=== PATIENT | female | born 1975 | race Caucasian/White ===

== ENCOUNTER 2025-07-06 14:23 | Emergency (ER) | payer OTHER, SELFPAY ==
--- NOTE | 2025-07-06 14:25 | ED_ITS ---
HPI - Abdominal Pain General Chief Complaint: Abdominal Pain Stated Complaint: stomach / sharp pain Time Seen by Provider: 07/06/25 14:25 Source: patient Mode of arrival: ambulatory Limitations: no limitations History of Present Illness HPI narrative: Kailey is a 50-year-old female patient presenting to the clinic today with complaints sharp epigastric abdominal pain and generalized back pain x1 day. She reports she drink beer and ate fried chicken yesterday. Symptoms are worse after eating. Denies any nausea, vomiting, or diarrhea. Last bowel movement was yesterday and normal for her. She does have a history of GERD, stomach ulcer, and constipation in the past as well. Has not been taking her GERD medications as she has recently moved here from [facility]. Denies any chest pain or shortness of breath. No blood in her stool. She denies any urinary symptoms. Last menstrual period was 1 week ago-no concern for . Related Data Allergies Allergy/AdvReac Type Severity Reaction Status Date / Time No Known Allergies Allergy Verified 07/06/25 14:53 Review of Systems Review of Systems: Pertinent positives per HPI. Patient denies any fever, chills, rash, headache, visual changes, dizziness, cough, runny nose, sore throat, shortness of breath, chest pain, palpitations, nausea, vomiting, diarrhea, constipation, or any urinary issues. PMFSH Comments At the time of my signature, I reviewed and agree with the nursing past medical, surgical, social, and family history. There is no relevant family history pertinent to the patient complaint. Exam Narrative: General: Well-developed, well nourished, in no apparent distress. Head: Normocephalic, atraumatic. Cardio: Regular rate and rhythm, s1 and s2 normal, no murmur appreciated. Resp: Clear to auscultation bilaterally, no rhonchi, rales, wheezing or rubs. Abdomen: Soft, pliable, bowel sounds present in all quadrants, epigastric abdominal tender to palpation, no organomegly, no CVAT tenderness. Course Course Emergency Course: Portions of this record may have been created with voice recognition software. Level of Care: Express Care Visit Vital Signs Vital signs: Vital Signs Temperature 36.5 C 07/06/25 14:32 Pulse Rate 74 07/06/25 14:32 Respiratory Rate 20 07/06/25 14:32 Blood Pressure 112/72 07/06/25 14:32 Pulse Oximetry 99 07/06/25 14:32 Oxygen Delivery Room Air 07/06/25 14:32 Temperature 36.5 C 07/06/25 14:32 Pulse Rate 74 07/06/25 14:32 Respiratory Rate 20 07/06/25 14:32 Blood Pressure 112/72 07/06/25 14:32 Pulse Oximetry 99 07/06/25 14:32 Oxygen Delivery Room Air 07/06/25 14:32 Vital signs reviewed MDM - Abdominal Pain MDM Narrative Medical decision making narrative: At the time of visit patient is resting comfortably on the exam table. Patient appears to be nontoxic. Complaints sharp epigastric abdominal pain and generalized back pain x1 day. She reports she drink beer and ate fried chicken yesterday. Symptoms are worse after eating. Denies any nausea, vomiting, or diarrhea. Last bowel movement was yesterday and normal for her. She does have a history of GERD, stomach ulcer, and constipation in the past as well. Has not been taking her GERD medications as she has recently moved here from [facility]. Denies any chest pain or shortness of breath. No blood in her stool. She denies any urinary symptoms. Last menstrual period was 1 week ago-no concern for . Patient reports that this feels exactly like she did when she had an ulcer. On exam patient has epigastric abdominal tenderness to palpation and generalized back pain over the upper and lower back. Bowel sounds are present all 4 quadrants. Medications: Viscous lidocaine 15 mL p.o., Maalox 30 mg p.o., and Toradol 60 mg IM Plan: I suspect patient has GERD-possible ulcer but cannot rule out gallbladder disease or pancreatitis. Shared decision-making was performed: Offer to send patient to the ER for further evaluation or february is send and medication for GERD treatment with diet restrictions and see if this helps alleviate her symptoms. Patient would like to try out the medications and go to the ER for symptoms worsen. Supportive measures were discussed with the patient and they voiced understanding discharge instructions and agrees to treatment plan. Return precautions reviewed Differential Diagnosis Differential diagnosis: Likely abdominal pain, acute appendicitis, calculus of kidney, constipation, diverticulitis, endometriosis, gastroenteritis, pancreatitis and small bowel obstruction Discharge Plan Discharge Clinical Impression: GERD (gastroesophageal reflux disease), Abdominal pain, epigastric Patient Disposition: Home Condition: Stable Instructions: Antibiotic Form, Diet for Stomach Ulcers and Gastritis (ED), GERD (Gastroesophageal Reflux Disease) (ED), Abdominal Pain (ED) Additional Instructions: Viscous lidocaine and maalox fiven by mouth in the clinic today Toradol 60mg IM given in the clinic today for pain. Take medications as prescribed-omeprazole and Carafate Increase fluids and stay well hydrated Avoid eating spicy or fatty foods, chocolate, or drinking caffeine. Avoid foods that cause you to feel bloated. Eat a bland diet Stop smoking Lose weight/exercise Stay upright for at least 30 minutes after eating. May use tums for immediate relief Cannot rule out pancreatitis or gallbladder disease in the clinic today Follow up with your PCP in 3-5 days if symptoms persist. Go to the emergency room if your symptoms worsen Patient Language: Hong Konger Prescriptions: New omeprazole 40 mg capsule,delayed release(DR/EC) 40 mg PO DAILY 30 Days Qty: 30 0RF sucralfate [Carafate] 1 gram tablet 1 g PO ACHS 30 Days Qty: 120 0RF Follow-up/Referrals: UNKNOWN,DOCTOR [Non-Staff] Time of Disposition: 15:45 Quality NIHSS Nursing Documentation ED NIHSS nursing documentation: reviewed/agree
[2025-07-06 14:32] VITALS: BP 112/72; PULSE 74; RESP 20; TEMP 36.5; O2SAT 99
--- OUTSIDE RECORDS SUMMARY | 2025-07-06 14:33 | XMS_ITS | Clinical Summary ---
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 Role Phone No, Physician Primary Care Provider [phone] Social History Tobacco Use Types Packs/Day Years Used Date Smoking Tobacco: Never Assessed Personal Safety Answer Date Recorded Getting School Help Needed Not on file 01/12 Comments Unknown Sex and Gender Information Value Date Recorded Sex Assigned at Not on file Legal Sex Female 1:23 PM CDT Gender Identity Not on file Sexual Orientation Not on file Plan of Treatment Health Maintenance Due Date Last Done Comments Breast Cancer Screening-Mammogram 1977 Cervical Cancer Screening 1977 Colon Cancer Screening-Colonoscopy 1977 Depression Screening 1977 Hepatitis C Screening 1977 DTaP/Tdap/Td Vaccine (1 - Tdap) 1988 Hepatitis B Screening 1995 Regular Well Visit/Exam 18-64 1995 Influenza Vaccine (#1) 2025 Pneumococcal vaccine <65 Aged Out No longer eligible based on patient's age to complete this topic Insurance [facility] [facility] PPO [facility] Care Teams Ribbon Sweatband Operator Relationship Specialty Start Date End Date No, Physician PCP - General 01/08/22
[2025-07-06] MEDS: MAG HYDROX/AL HYDROX/SIMETH 30 ML UDC PO (15:00)
[2025-07-06] MEDS: LIDOCAINE 2% VISC SOLN 15 ML UDC PO (15:00)
[2025-07-06] MEDS: KETOROLAC (*BKC) 60 MG/2 ML VIAL IM (15:33)
[2025-07-06 16:00] VITALS: TEMP 36.5
== END 2025-07-06 16:00 | disposition home or self-care (01) ==
PROVIDERS: Emergency Provider Nurse Practitioner Family
DX: K21.9 Gastro-esophageal reflux disease without esophagitis (principal); R10.13 Epigastric pain
CPT/HCPCS: 96372; 99213; A9270; G0463; J1885